=== PATIENT | male | born 1950 | race Caucasian/White ===

== ENCOUNTER 2017-09-03 07:19 | Emergency (ER) | payer MEDICARE, OTHER ==
--- NOTE | 2017-09-03 07:39 | UC ---
Shortness of Breath HPI - HPI Summary HPI Summary: SEVERAL DAYS OF SHORTNESS OF BREATH AND COUGH. HAS MILD RUNNY NOSE. DENIES FEVER , ST, EAR PAIN. SMOKES 1PPD SINCE AGE 15 (52 YEARS). HAS NO PCP OR REGULAR MEDICAL CARE. ARRIVES TO HYPOXIC WITH 84%O2SAT AND TACHYCARDIC. - History of Current Complaint Chief Complaint: UCRespiratory Stated Complaint: SOB COUGH Time Seen by Provider: 09/03/17 07:23 Hx Obtained From: Patient, Family/Head Of Science - Onset/Duration: Gradual Onset, Lasting Days, Still Present Timing: Constant Current Severity: Moderate Aggrevating Factors: Movement Alleviating Factors: Nothing Associated Signs & Symptoms: Positive: Cough (Nonproductive), Wheezing, Nasal Congestion. Negative: Chest Pain w/Cough, Chest Pain Unrelated to Cough, Fever , Dizzy - Allergy/Home Medications Allergies/Adverse Reactions: Allergies Allergy/AdvReac Type Severity Reaction Status Date / Time Penicillins Allergy Rash Verified 06/14/15 19:26 PMH/Surg Hx/FS Hx/Imm Hx Previously Healthy: Yes - Surgical History Surgical History: None - Family History Known Family History: Positive: Cardiac Disease - Social History Alcohol Use: Rare Substance Use Type: None Smoking Status (MU): Heavy Every Day Tobacco Smoker Type: Cigarettes Amount Used/How Often: 1 ppd Review of Systems Constitutional: Negative ENT: Nasal Discharge Respiratory: Shortness Of Breath, Cough Cardiovascular: Negative Gastrointestinal: Negative All Other Systems Reviewed And Are Negative: Yes Physical Exam Triage Information Reviewed: Yes Appearance: No Pain Distress, Well-Nourished, Ill-Appearing - MOD Vital Signs: Initial Vital Signs Temp 98.7 F 09/03/17 07:20 Pulse 126 09/03/17 07:20 Resp 24 09/03/17 07:20 Pulse Ox 84 09/03/17 07:20 Vital Signs Reviewed: Yes Eyes: Positive: Conjunctiva Clear ENT: Positive: Hearing grossly normal Neck: Positive: Supple Respiratory: Positive: Decreased breath sounds, Accessory muscle use, Wheezing - MILD DIFFUSE Cardiovascular: Positive: Tachycardia - IRREGULAR Abdomen Description: Positive: Soft Musculoskeletal: Positive: No Edema Neurological: Positive: Alert Psychological: Positive: Normal Response To Family, Age Appropriate Behavior Skin: Negative: rashes Diagnostics - EKG Cardiac Rate: Tachycardia - 120BPM Cardiac Rhythm: Sinus: Normal, AFib: Normal, Junctional: Normal, LBBB: Normal, Other Rhythm: Normal Ectopy: None ST Segment: Normal Shortness of Breath Dx - Differential Dx/Diagnosis Provider Diagnoses: HYPOXIA/TACHYCARDIA - Physician Notification/Consults Discussed Patient Care With: Khai Hancock - [place] [facility] Instructed by Provider To: MD Will See In ED Discharge - Discharge Plan Condition: Stable Disposition: TRANS HIGHER LVL OF CARE FAC Referrals: Non Staff,Doctor [Medical Doctor] -
[2017-09-03] MEDS ORDERED: Albuterol HFA INHALER* 8 gm MDI INH ONE (07:43)
[2017-09-03] MEDS ORDERED: Ipratropium 0.5MG/2.5ML NEB* 0.5 MG/2.5 ML NEB.SOLN INH ONE (07:43)
[2017-09-03] MEDS ORDERED: Albuterol/Ipratropium NEB.SOL* Albuterol 2.5 MG/Ipratropium 0.5 MG 3 ML ONE (07:44)
[2017-09-03] MEDS ORDERED: Albuterol 2.5 MG/3 ML NEB.SOL* (0.083%) INH ONE (07:51)
== END 2017-09-03 08:01 | disposition short-term general hospital (02) ==
LOC: UCEAST 07:19
DX: R09.02 Hypoxemia (principal); F17.210 Nicotine dependence, cigarettes, uncomplicated; R00.0 Tachycardia, unspecified
CPT/HCPCS: 93005; 99213; A9270-GY; G0463

== ENCOUNTER 2017-09-03 08:20 | Inpatient (IN) | payer MEDICARE, OTHER ==
[2017-09-03] MEDS ORDERED: methylPREDNISolone 125 MG* 2 ML VIAL IV ONE (08:22)
[2017-09-03] MEDS ORDERED: NS 0.9% 1000 ML* 1,000 ML IV ONE (08:22)
[2017-09-03] MEDS ORDERED: Albuterol/Ipratropium NEB.SOL* Albuterol 2.5 MG/Ipratropium 0.5 MG 3 ML INH ONE (08:22)
[2017-09-03 08:39] LABS: Hematocrit 46 % (42-52); Hemoglobin 15.1 g/dl (14.0-18.0); Mean Corpuscular HGB Conc 33 g/dl (31-36); Mean Corpuscular Hemoglobin 30 pg (27-31); Mean Corpuscular Volume 91 fL (80-94); Mean Platelet Volume 9 um3 (7.4-10.4); Red Blood Count 5.07 10^6/ul (4.0-5.4); Red Cell Distribution Width 14 % (10.5-15)
[2017-09-03] MEDS ORDERED: Levofloxacin 750 MG IVPREMIX(* 750 MG/150 ML BAG IVPB ONE (08:39)
[2017-09-03 09:05] LABS: C Reactive Protein 80.9 mg/L (< 5.00)
[2017-09-03 09:12] LABS: Troponin I 0.05 ng/mL (<0.04)
--- NOTE | 2017-09-03 09:30 | RAD ---
INDICATION: Short of breath COMPARISON: None TECHNIQUE: PA and lateral dual-energy views were obtained. FINDINGS: Bones/Soft Tissues: There are no acute bony findings. Cardiomediastinal: The heart is normal in size. The central pulmonary vessels are prominent perhaps related to pulmonary arterial hypertension. Lungs: There is hyperinflation. There is diffuse interstitial change which is likely chronic. Since there are no prior examinations for comparison, suggest follow-up imaging as indicated. Pleura: There are no pleural effusions. Other: None IMPRESSION: HYPERINFLATION WITH PRESUMED CHRONIC INTERSTITIAL CHANGE.
[2017-09-03 09:36] LABS: BUN/Creatinine Ratio 10.8 (8-20); EGFR African American 93.7 (>60); EGFR Non-African American 72.8 (>60); Globulin 4.1 g/dL (2-4); Total Bilirubin 0.6 mg/dL (0.2-1.0); Total Protein 8.1 g/dL (6.4-8.9)
[2017-09-03 10:01] LABS: Potassium 4.1 mmol/L (3.5-5.0)
[2017-09-03] MEDS ORDERED: Levalbuterol 1.25MG/0.5ML NEB INH PRN (11:32)
[2017-09-03] MEDS: Albuterol/Ipratropium NEB.SOL* Albuterol 2.5 MG/Ipratropium 0.5 MG 3 ML INH SCH ×2 (12:45→19:33)
[2017-09-03] MEDS: Enoxaparin(*) 40 MG/0.4 ML SYR SUBCUT SCH (12:45)
[2017-09-03] MEDS: Nicotine PATCH 21 MG/24 HR* PATCH TRANSDERM SCH (13:50)
--- NOTE | 2017-09-03 16:28 | HP ---
HISTORY AND PHYSICAL: DATE OF ADMISSION: 09/03/17 PRIMARY CARE PHYSICIAN: The patient does not have PCP. CHIEF COMPLAINT: Shortness of breath and cough. HISTORY OF PRESENT ILLNESS: Mr. Osborn is a 67-year-old man with a past medical history of tobacco abuse, heart murmur and little medical followup, presents to the hospital with shortness of breath and cough. The patient states his symptoms began 3 days ago initially just with a cough. He states that by the following morning he also developed a sore throat. 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 He said he felt well throughout the day; however, Friday night symptoms seemed to return. Over the following days, he also developed some shortness of breath that seemed to be only significant when he was coughing. He did not feel like he had any exertional dyspnea, although he did report the cough was worse when he was lying down. Cough is productive of initially clear sputum, but then turned yellow. His states that there may have been a slight pink tinge this morning. Overnight last night, his noticed he was having significantly difficulty breathing when she got home from work. He was sitting up in his chair and had difficulty lying down flat, also did not have much to eat yesterday. Patient denies any subjective fever, chills , chest pain, nausea, vomiting, diarrhea or constipation. Denies any myalgias. He does not think he was exposed to any sick contacts. 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 His works in the school system, so she is exposed to a lot of viral infections. She herself has not been sick. Patient has not had a flu shot this year and states that he has not seen a doctor for probably 40 years. PAST MEDICAL HISTORY: Heart murmur, tobacco abuse. PAST SURGICAL HISTORY: None. HOME MEDICATIONS: Occasionally use Advil. FAMILY HISTORY: Significant for his sister with COPD, maternal grandmother with CHF. SOCIAL HISTORY: Patient is a pack per day smoker x50 years, rarely drinks alcohol. Denies any illicit drug use. Patient reports allergy to penicillin, which causes hives. PHYSICAL EXAMINATION GENERAL: The patient is a middle-aged, male, lying in bed, in no apparent distress. VITAL SIGNS: On admission, temperature 100.1, heart rate of 108, respiratory rate of 26, O2 saturation 93% on 2 L, blood pressure 180/93. HEENT: Head normocephalic, atraumatic. Eyes: Pupils equal, round, and reactive to light and accommodation. Anicteric sclerae. ENT: Dry mucous membranes. No cervical lymphadenopathy. LUNGS: Patient with diffuse inspiratory and expiratory wheezing. Fair air movement. May be some slight rales in the right base CARDIOVASCULAR: Tachycardic, could not appreciate murmur. No gallops or rubs. ABDOMEN: Soft, nontender, nondistended. Bowel sounds positives. EXTREMITIES: No cyanosis, clubbing or edema. NEUROLOGIC: The patient is alert and oriented x3. No focal neurological deficits. DIAGNOSTIC STUDIES/LAB DATA: White blood cell count of 17, hematocrit of 46, platelets of 309, lactic acid 1.3. Sodium 131, potassium 4.1, chloride of 97, carbon dioxide of 25, BUN of 11, creatinine 1.02, glucose of 136. LFTs are within normal limits. CK of 109, CK-MB of 6, troponin 0.05, CRP of 80. B- natriuretic peptide of 627. Flu, negative. Chest x-ray personally reviewed shows hyper-expanded lungs. No focal consolidations. EKG personally reviewed shows sinus tachycardia with PVC and left ventricular hypertrophy. ASSESSMENT AND PLAN: Shortness of breath, hypoxia, low-grade fever, likely due to chronic obstructive pulmonary disease exacerbation in a 67-year-old man with little medical followup but significant tobacco abuse history. 1. Shortness of breath, cough, low-grade fever, likely secondary to chronic obstructive pulmonary disease exacerbation that is undiagnosed as the patient has little medical followup. No clear evidence of pneumonia on chest x-ray, but he does have a significant white blood cell count. He received levofloxacin in the emergency department. For now I am just going to continue the patient on azithromycin 500 mg daily x3 days. Check a procalcitonin and if this is elevated, we will consider adding on ceftriaxone as well. The patient received 125 mg of methylprednisolone in the emergency department. We will continue him on 40 q. 12 for now, may be able to transition oral prednisone tomorrow morning. We will place the patient on around the clock Mady with p.r.n. Xopenex. He was counseled on tobacco cessation. We will try to wean his oxygen as tolerated. Flu swab is negative. His sputum Gram stain was polymicrobial with some epithelial cells. 2. Troponin elevation. The patient does have a mild troponin elevation of 0.05. We will continue to trend this for now, monitor patient on telemetry. I suspect this is likely demand mediated from his hypoxia. However, he does have an elevated B-natriuretic peptide and does state some of his symptoms are worse when lying flat. With these findings as well as his EKG, I am going to get an echocardiogram to evaluate his cardiac function. 3. DVT prophylaxis. Lovenox subcu. 4. Code status. Patient is a full code. TIME SPENT: Total time spent on this admission 50 minutes with over half the time spent [id number] with the patient in counseling and coordinating care. [id number]/CPS #: [id number] MTDD
--- NOTE | 2017-09-03 16:42 | ECHO ---
Patient: RAFAEL LUO [facility] Rec#: [id number] : 1950 Date: 09/03/2017 Age: 67y Height: 170.2 cm / 67.0 in Weight: 81.7 kg / 180.1 lbs Sex: M BSA: 1.9 Room#: [facility] Admit Date#: 09/03/2017 Type: Inpatient Referring: RADHA GRANADOS MD Reading: Dennise Oglesby MD [employer] Operator: Leila Jansen RN RDCS Transthoracic Echocardiogram Indication: SOB, elevated BNP BP: 128/61 HR: 98 Rhythm: NSR with PVCs Findings History: Smoker Technical Comments: The study quality is fair. The study is technically limited due to the patient's smoking history. Completed at 1622. Left Ventricle: The left ventricular chamber size is normal. Septal wall hypertrophy is observed. There is global hypokinesis of the left ventricle with minor regional variation.Relative hypokinesis of the inferior wall and mild global hypokinesis relative to RV systolic function. There is mild to moderately decreased left ventricular systolic function. The estimated ejection fraction is 45-50%. There is no consistent Doppler evidence of clinically significant diastolic dysfunction. Left Atrium: The left atrial chamber size is normal. Right Ventricle: The right ventricle wall thickness is mildly increased. The right ventricular cavity size is normal. The right ventricular global systolic function is normal. Right Atrium: The right atrium is slightly dilated. Aortic Valve: The aortic valve structure is not well visualized. The aortic valve leaflets are mildly thickened. There is no evidence of aortic regurgitation. There is no evidence of aortic stenosis. Mitral Valve: The mitral valve leaflets are mildly thickened. There is trace to mild mitral regurgitation. There is no evidence of mitral stenosis. Tricuspid Valve: The tricuspid valve leaflets are normal. There is trace tricuspid regurgitation. Unable to estimate the right ventricular systolic pressure. There is no tricuspid stenosis. Pulmonic Valve: The pulmonic valve structure is not well visualized. Pericardium: There is no significant pericardial effusion. A pericardial fat pad is visualized. Aorta: There is no dilatation of the ascending aorta. The aortic arch is not well visualized. There is no dilation of the aortic root. Pulmonary Artery: The main pulmonary artery is not well visualized. Venous: The inferior vena cava appears normal in size. There is a greater than 50% respiratory change in the inferior vena cava dimension. Conclusions Technically limited study due to smoking history. Septal wall hypertrophy is observed. There is mild global hypokinesis of the left ventricle with minor regional variation, relative hypokinesis of the inferior wall. The estimated ejection fraction is 45%. The right ventricle wall thickness is mildly increased with normal RV systolic function. There is trace to mild mitral regurgitation. There is trace tricuspid regurgitation. No prior study to compare. Measurements Name Value Normal Range RVIDd (AP) 2D 3.5 cm (0.9 - 2.6) RVDdMajor (2D) 3.3 cm (2.2 - 4.4) RVAW (2D) 0.8 cm (0.2 - 0.5) RAd ISD 4CH 5.3 cm (3.4 - 4.9) RA (A4C)W 4.1 cm (2.9 - 4.6) IVSd (2D) 1.1 cm (0.6 - 1) LVPWd (2D) 1 cm (0.6 - 1) LVIDd (2D) 5.2 cm (3.6 - 5.4) LVIDs (2D) 4.4 cm - LV FS (2D) 14 % (25 - 45) Aortic Annulus 2.2 cm (1.4 - 2.6) Ao root diameter (2D) 3 cm (2.1 - 3.5) Ascending Ao 3.1 cm (2.1 - 3.4) LA dimension (AP) 2D 3.4 cm (2.3 - 3.8) LAd ISD 4CH 5.4 cm (2.9 - 5.3) LA ISD 4CH W 4.1 cm (2.5 - 4.5) Name Value Normal Range LA ESV SP 4CH (A/L) 41 ml - LA ESV SP 2CH (A/L) 32 ml - LA ESV BP (A/L) 39 ml - LA ESV BP (A/L) index 20.3 ml/m2 - LA ESV SP 4CH (MOD) 38 ml - LA ESV SP 2CH (MOD) 31 ml - Name Value Normal Range MV E-wave Vmax 0.88 m/sec - MV deceleration time 183 msec - MV A-wave Vmax 0.73 m/sec - MV E:A ratio 1.2 ratio - LV septal e' Vmax 0.08 m/sec - LV lateral e' Vmax 0.1 m/sec - LV E:e' septal ratio 11 ratio - LV E:e' lateral ratio 8.8 ratio - Name Value Normal Range AV Vmax 1.7 m/sec - AV VTI 31.6 cm - AV peak gradient 10.5 mmHg - AV mean gradient 5.8 mmHg - LVOT Vmax 1.3 m/sec - LVOT VTI 22.1 cm - LVOT peak gradient 6.8 mmHg - LVOT mean gradient 4.1 mmHg - Name Value Normal Range IVC diameter 1.5 cm - Name Value Normal Range PV Vmax 0.78 m/sec -
[2017-09-03 17:53] LABS: Urine Bacteria 1+ (Absent); Urine Bilirubin Negative (Negative); Urine Glucose Negative (Negative); Urine Nitrite Negative (Negative)
[2017-09-03] MEDS ORDERED: Nicotine Patch Removal NOTE PATCH OFF SCH (21:00)
[2017-09-03] MEDS: methylPREDNISolone SOD 40 MG* 1 ML VIAL IV SCH (21:21)
[2017-09-04] MEDS: Albuterol/Ipratropium NEB.SOL* Albuterol 2.5 MG/Ipratropium 0.5 MG 3 ML INH SCH ×3 (01:30→12:39)
[2017-09-04 07:05] LABS: Hematocrit 39 % (42-52); Mean Corpuscular HGB Conc 33 g/dl (31-36); Mean Corpuscular Hemoglobin 30 pg (27-31); Mean Corpuscular Volume 90 fL (80-94); Mean Platelet Volume 9 um3 (7.4-10.4); Red Blood Count 4.34 10^6/ul (4.0-5.4); Red Cell Distribution Width 14 % (10.5-15); White Blood Count 17.6 10^3/ul (3.5-10.8)
--- NOTE | 2017-09-04 08:26 | ED ---
Bruce Thornton Angela, scribed for Khai Hancock MD on 09/03/17 at 0826 . Shortness of Breath - HPI Summary HPI Summary: This pt is a 67 y/o male BIBA from [facility] presenting to [facility] c/o SOB and cough that began 3 days ago. He states that his cough is productive with white sputum. Pt reports that he has only been taking Nyquil for his cough but denies taking any other medications. Pt denies fever. Per EMS, pt was found hypertensive 174/104 at Urgent Care. Pt is a current smoker, smokes about 1 ppd (since the age of 15). He drinks alcohol socially. Pt notes he has not seen a doctor in over 40 years. He denies any PMHx of COPD. Allergies: penicillin. - History of Current Complaint Hx Obtained From: Patient, Family/Floor Polisher - Onset/Duration: Lasting Days, Still Present Timing: Constant Dyspnea At: Rest Associated Signs & Symptoms: Cough (Productive) - Risk Factors Cardiac: Smoking - Allergy/Home Medications Allergies/Adverse Reactions: Allergies Allergy/AdvReac Type Severity Reaction Status Date / Time Penicillins Allergy Rash Verified 06/14/15 19:26 PMH/Surg Hx/FS Hx/Imm Hx Endocrine/Hematology History: Denies: Hx Diabetes Cardiovascular History: Denies: Hx Hypertension Respiratory History: Denies: Hx Chronic Obstructive Pulmonary Disease (COPD) - Family History Known Family History: Positive: Cardiac Disease - Social History Alcohol Use: Rare Substance Use Type: Reports: None Smoking Status (MU): Heavy Every Day Tobacco Smoker Type: Cigarettes Amount Used/How Often: 1 ppd Review of Systems Negative: Fever, Chills Eyes: Negative ENT: Negative Cardiovascular: Negative Positive: Shortness Of Breath, Cough - productive with white sputum Gastrointestinal: Negative Genitourinary: Negative Musculoskeletal: Negative Skin: Negative All Other Systems Reviewed And Are Negative: Yes Physical Exam - Summary Physical Exam Summary: VITAL SIGNS: Reviewed. GENERAL: Patient is a well-developed and nourished male who is lying comfortable in the stretcher. HEAD AND FACE: No signs of trauma. No ecchymosis, hematomas or skull depressions. No sinus tenderness. EYES: PERRLA, EOMI x 2, No injected conjunctiva, no nystagmus. EARS: Hearing grossly intact. Ear canals and tympanic membranes are within normal limits. MOUTH: Oropharynx within normal limits. NECK: Supple, trachea is midline, no adenopathy, no JVD, no carotid bruit, no c- spine tenderness, neck with full ROM. CHEST: Symmetric, no tenderness at palpation LUNGS: There are decreased breath sounds bilaterally with wheezes and crackles at bases of the lungs. CVS: Regular rate and rhythm, S1 and S2 present, no murmurs or gallops appreciated. ABDOMEN: Soft, non-tender. No signs of distention. No rebound no guarding, and no masses palpated. Bowel sounds are normal. EXTREMITIES: FROM in all major joints, no edema, no cyanosis or clubbing. NEURO: Alert and oriented x 3. No acute neurological deficits. Speech is normal and follows commands. SKIN: Dry and warm Triage Information Reviewed: Yes Vital Signs On Initial Exam: Initial Vitals Temp Pulse Resp BP Pulse Ox 100.1 F 108 26 180/93 93 09/03/17 08:27 09/03/17 08:27 09/03/17 08:27 09/03/17 08:27 09/03/17 08:27 Vital Signs Reviewed: Yes Diagnostics - Vital Signs Vital Signs Temp Pulse Resp BP Pulse Ox 09/03/17 10:30 104 27 110/79 94 09/03/17 10:00 104 35 95 09/03/17 09:14 109 22 99 09/03/17 09:00 109 34 93 09/03/17 08:37 36 09/03/17 08:32 108 35 180/93 94 09/03/17 08:27 100.1 F 108 26 180/93 93 - Laboratory Lab Results: Lab Results 09/03/17 09/03/17 09/03/17 Range/Units 07:54 07:54 07:54 WBC 17.0 H (3.5-10.8) 10^3/ul RBC 5.07 (4.0-5.4) 10^6/ul Hgb 15.1 (14.0-18.0) g/dl Hct 46 (42-52) % MCV 91 (80-94) fL MCH 30 (27-31) pg MCHC 33 (31-36) g/dl RDW 14 (10.5-15) % Plt Count 309 (150-450) 10^3/ul MPV 9 (7.4-10.4) um3 Neut % (Auto) 92.8 H (38-83) % Lymph % (Auto) 2.0 L (25-47) % Jennings % (Auto) 4.4 (1-9) % Eos % (Auto) 0.1 (0-6) % Baso % (Auto) 0.7 (0-2) % Absolute Neuts (auto) 15.7 H (1.5-7.7) 10^3/ul Absolute Lymphs (auto) 0.3 L (1.0-4.8) 10^3/ul Absolute Monos (auto) 0.7 (0-0.8) 10^3/ul Absolute Eos (auto) 0 (0-0.6) 10^3/ul Absolute Basos (auto) 0.1 (0-0.2) 10^3/ul Absolute Nucleated RBC 0.01 10^3/ul Nucleated RBC % 0.1 Sodium (133-145) mmol/L Potassium (3.5-5.0) mmol/L Chloride (101-111) mmol/L Carbon Dioxide (22-32) mmol/L Anion Gap (2-11) mmol/L BUN (6-24) mg/dL Creatinine (0.67-1.17) mg/dL Est GFR ( Amer) (>60) Est GFR (Non-Af Amer) (>60) BUN/Creatinine Ratio (8-20) Glucose (70-100) mg/dL Lactic Acid (0.5-2.0) mmol/L Calcium (8.6-10.3) mg/dL Total Bilirubin (0.2-1.0) mg/dL AST (13-39) U/L ALT (7-52) U/L Alkaline Phosphatase (34-104) U/L Total Creatine Kinase 109 (10-223) U/L CK-MB (CK-2) 6.0 (0.6-6.3) ng/mL Troponin I 0.05 H* (<0.04) ng/mL C-Reactive Protein 80.90 H (< 5.00) mg/L B-Natriuretic Peptide 627 H ( - 100) pg/mL Total Protein (6.4-8.9) g/dL Albumin (3.2-5.2) g/dL Globulin (2-4) g/dL Albumin/Globulin Ratio (1-3) Procalcitonin (<0.6) ng/mL Influenza A (Rapid) (Negative) Influenza B (Rapid) (Negative) 09/03/17 09/03/17 09/03/17 Range/Units 07:54 08:38 08:38 WBC (3.5-10.8) 10^3/ul RBC (4.0-5.4) 10^6/ul Hgb (14.0-18.0) g/dl Hct (42-52) % MCV (80-94) fL MCH (27-31) pg MCHC (31-36) g/dl RDW (10.5-15) % Plt Count (150-450) 10^3/ul MPV (7.4-10.4) um3 Neut % (Auto) (38-83) % Lymph % (Auto) (25-47) % Jennings % (Auto) (1-9) % Eos % (Auto) (0-6) % Baso % (Auto) (0-2) % Absolute Neuts (auto) (1.5-7.7) 10^3/ul Absolute Lymphs (auto) (1.0-4.8) 10^3/ul Absolute Monos (auto) (0-0.8) 10^3/ul Absolute Eos (auto) (0-0.6) 10^3/ul Absolute Basos (auto) (0-0.2) 10^3/ul Absolute Nucleated RBC 10^3/ul Nucleated RBC % Sodium 131 L (133-145) mmol/L Potassium 4.1 (3.5-5.0) mmol/L Chloride 97 L (101-111) mmol/L Carbon Dioxide 25 (22-32) mmol/L Anion Gap 9 (2-11) mmol/L BUN 11 (6-24) mg/dL Creatinine 1.02 (0.67-1.17) mg/dL Est GFR ( Amer) 93.7 (>60) Est GFR (Non-Af Amer) 72.8 (>60) BUN/Creatinine Ratio 10.8 (8-20) Glucose 136 H (70-100) mg/dL Lactic Acid 1.3 (0.5-2.0) mmol/L Calcium 9.0 (8.6-10.3) mg/dL Total Bilirubin 0.60 (0.2-1.0) mg/dL AST 14 (13-39) U/L ALT 13 (7-52) U/L Alkaline Phosphatase 89 (34-104) U/L Total Creatine Kinase (10-223) U/L CK-MB (CK-2) (0.6-6.3) ng/mL Troponin I (<0.04) ng/mL C-Reactive Protein (< 5.00) mg/L B-Natriuretic Peptide ( - 100) pg/mL Total Protein 8.1 (6.4-8.9) g/dL Albumin 4.0 (3.2-5.2) g/dL Globulin 4.1 H (2-4) g/dL Albumin/Globulin Ratio 1.0 (1-3) Procalcitonin 0.1 (<0.6) ng/mL Influenza A (Rapid) (Negative) Influenza B (Rapid) (Negative) 09/03/17 Range/Units 08:57 WBC (3.5-10.8) 10^3/ul RBC (4.0-5.4) 10^6/ul Hgb (14.0-18.0) g/dl Hct (42-52) % MCV (80-94) fL MCH (27-31) pg MCHC (31-36) g/dl RDW (10.5-15) % Plt Count (150-450) 10^3/ul MPV (7.4-10.4) um3 Neut % (Auto) (38-83) % Lymph % (Auto) (25-47) % Jennings % (Auto) (1-9) % Eos % (Auto) (0-6) % Baso % (Auto) (0-2) % Absolute Neuts (auto) (1.5-7.7) 10^3/ul Absolute Lymphs (auto) (1.0-4.8) 10^3/ul Absolute Monos (auto) (0-0.8) 10^3/ul Absolute Eos (auto) (0-0.6) 10^3/ul Absolute Basos (auto) (0-0.2) 10^3/ul Absolute Nucleated RBC 10^3/ul Nucleated RBC % Sodium (133-145) mmol/L Potassium (3.5-5.0) mmol/L Chloride (101-111) mmol/L Carbon Dioxide (22-32) mmol/L Anion Gap (2-11) mmol/L BUN (6-24) mg/dL Creatinine (0.67-1.17) mg/dL Est GFR ( Amer) (>60) Est GFR (Non-Af Amer) (>60) BUN/Creatinine Ratio (8-20) Glucose (70-100) mg/dL Lactic Acid (0.5-2.0) mmol/L Calcium (8.6-10.3) mg/dL Total Bilirubin (0.2-1.0) mg/dL AST (13-39) U/L ALT (7-52) U/L Alkaline Phosphatase (34-104) U/L Total Creatine Kinase (10-223) U/L CK-MB (CK-2) (0.6-6.3) ng/mL Troponin I (<0.04) ng/mL C-Reactive Protein (< 5.00) mg/L B-Natriuretic Peptide ( - 100) pg/mL Total Protein (6.4-8.9) g/dL Albumin (3.2-5.2) g/dL Globulin (2-4) g/dL Albumin/Globulin Ratio (1-3) Procalcitonin (<0.6) ng/mL Influenza A (Rapid) Negative (Negative) Influenza B (Rapid) Negative (Negative) Result Diagrams: 09/03/17 07:54 09/03/17 08:38 Lab Statement: Any lab studies that have been ordered have been reviewed, and results considered in the medical decision making process. - Radiology Chest XR Xray Interpretation: Positive (See Comments) - IMPRESSION: Hyperinflation with presumed chronic interstitial change. ED physician has reviewed this radiology report and agrees. Radiology Interpretation Completed By: Radiologist - EKG 0831 Cardiac Rate: Tachycardia - 108 bpm EKG Rhythm: Sinus Rhythm Ectopy: PVCs EKG Interpretation: No ST elevation Re-Evaluation - Re-Evaluation First Eval Re-Evaluation Time: 10:46 Comment: I discussed the admission plan with the pt and . Course/Dx - Course Assessment/Plan: This pt is a 67 y/o male BIBA from [facility] presenting to [facility] c /o SOB and cough that began 3 days ago. He states that his cough is productive with white sputum. Pt reports that he has only been taking Nyquil for his cough but denies taking any other medications. Pt denies fever. Per EMS, pt was found hypertensive 174/104 at Urgent Care. Pt is a current smoker, smokes about 1 ppd (since the age of 15). He drinks alcohol socially. Pt notes he has not seen a doctor in over 40 years. He denies any PMHx of COPD. Allergies: penicillin. Labs without any significant abnormalities except for WBC of 17, sodium of 131, glucose of 136. Troponin #1: 0.05, Troponin #2: 0.07. CRP of 80, BNP of 627. Influenza A and B are negative. Chest XR shows hyperinflation with presumed chronic interstitial change. In the ED course an IV access was obtained , duoneb and solumedorl were given to the pt, for what I think his symptoms are consistent with COPD exacerbation. Pt was also given aspirin for increased troponin. After these medications, the pts symptoms improved and the pt is feeling better. At this time, I discussed the case with Dr. Parkinson (hospitalist ) who accepted the pt for admission to rule out acute coronary syndrome, COPD. Pt was also given Levaquin since she he had elevated WBC and pt is having a COPD exacerbation. Pt is hemodynamically stable, alert and oriented x3. - Diagnoses Differential Diagnosis/HQI/PQRI: Positive: CHF, Chest Wall Pain, COPD Exacerbation, Pneumonia Provider Diagnoses: COPD exacerbation, rule out acute coronary syndrome - Physician Notifications Discussed Care of Patient With: Chi Parkinson Time Discussed With Above Provider: 10:44 Instructed by Provider To: Other - I discussed the pt's case with Dr. Parkinson, who has accepted the pt for admision. Discharge - Discharge Plan Condition: Stable Disposition: ADMITTED TO [facility] The documentation as recorded by the Bruce arthur Angela accurately reflects the service I personally performed and the decisions made by me, Khai Hancock MD.
[2017-09-04] MEDS ORDERED: Azithromycin TAB* 250 MG PO SCH (09:00)
[2017-09-04] MEDS: methylPREDNISolone SOD 40 MG* 1 ML VIAL IV SCH (10:06)
[2017-09-04] MEDS: Nicotine PATCH 21 MG/24 HR* PATCH TRANSDERM SCH (10:07)
[2017-09-04] MEDS: Enoxaparin(*) 40 MG/0.4 ML SYR SUBCUT SCH (11:55)
[2017-09-04 14:31] VITALS: BP 144/77
--- NOTE | 2017-09-05 05:54 | DS ---
DISCHARGE SUMMARY: DATE OF ADMISSION: 09/03/17 DATE OF DISCHARGE: 09/04/17 Of note was seen again in ED: 09/05/17 ADMITTING PROVIDER: Chi Parkinson MD ATTENDING PHYSICIAN: Israel Ribera MD PRIMARY CARE PHYSICIAN: Yet to be established, has not seen doctor in 40 years. CHIEF COMPLAINT: Shortness of breath and productive cough. PRINCIPAL DIAGNOSES: Pneumonia versus chronic obstructive pulmonary disease exacerbation versus interstitial lung disease. HISTORY OF PRESENT ILLNESS AND HOSPITAL COURSE: Mr. 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 He said he felt better, but then developed progressive shortness of breath, worse with coughing, which is productive of clear and then yellow sputum. His noticed that he was having difficulty lying down flat. No specific sick contacts, although a friend who poorly had pneumonia that his works in the school system. She herself has not been sick and a friend who is symptomatic at the time did not get a flu shot this year. He says he stopped smoking 3 days prior to admission with initiation of these symptoms. The patient was admitted to the hospital for pneumonia versus undiagnosed COPD exacerbation. He got a chest x-ray, which showed some chronic interstitial changes and hyperinflation. So, initial vital signs were significant for fever of 100.1, tachycardia of 108, initial tachypnea with respiratory rates up into the mid 30s to 39, satting low 90s. He was started on steroids 125 of Solu-Medrol and got one dose of Levaquin in the emergency room before transition to azithromycin 500 mg daily. The patient was noted to have a 5-beat run of NSVT overnight with some PVCs. He had an echocardiogram, which showed ejection fraction of 45% to 50%, some septal wall hypertrophy, some mild global hypokinesis of the left ventricle with minor regional variations with hypokinesis of the inferior wall, trace tricuspid regurgitation, trace to mild mitral regurgitation. The patient rapidly improved by hospital day #2, was satting mid 90s on room air, resolved tachypnea , afebrile, improved heart rate into the high 90s, able to ambulate without desaturation. The patient will be discharged and need to follow up with a new PCP to be established. Also recommendation to follow up with new procurement intern and supervisor bonding, Dr. Stephen. An order has been placed for CT chest to occur within approximately 2 weeks to monitor for evaluation of potential COPD and also this interstitial process. I will continue course of azithromycin and prednisone taper 60 mg for 4 days, 40 mg for 4 days, and 20 mg for 4 days until stop. Of note, his troponins were 0.05, 0.07, and 0.06. Denied any chest pain. His EKG was significant for LVH and sinus tachycardia. DISCHARGE MEDICATIONS: Include: 1. Prednisone 20 mg tabs to be taken 60 mg for 4 days, 40 mg for 4 days, and 20 mg for 4 days. 2. Azithromycin 500 mg for 2 more days. 3. Nicotine patch 21 mg every 24 hours. ADDENDUM: Pt was doing well at home but had a coughing fit the next morning. [facility] had not filled the azithromycin for him for unclear reason and he had misread the instructions on the prednisone, taking only 20mg. He re-presented to the emergency room 09/05 and felt improved after IV solumedrol. He was again Sat'ing 93-96% on room air, was moving air well w/ wheezing or rhonchi on my re- evaluation and again discharged home with additional medications: 4. levaquin 750mg x 7 days 5. spiriva 1 inhalation daily 6. albuterol nebs w/ nebulizor machine 7. symbicort 2 puffs BID Of note later found out they did not fill the spiriva or symbicort saying it was too expensive for them. DISCHARGE DIET: Heart healthy. ACTIVITY LEVEL: Unrestricted. FOLLOWUP: As mentioned, needs to establish care with primary care provider, Dr. Stephen, Pulmonology and new procurement intern. He should get this CT chest within approximately 2 weeks along with pulmonary function tests as an outpatient to evaluate for COPD. f/u finalized sputum cultures x2. TIME SPENT ON DISCHARGE: 35 minutes. [id number]/[facility] #: [id number] [facility]
== END 2017-09-04 18:15 | disposition home or self-care (01) | DRG 190 ==
LOC: ED 08:20 → MED 10:54
PROVIDERS: ADMIT Hospitalist; ATTEND Internal Medicine
DX: J44.1 Chronic obstructive pulmonary disease with (acute) exacerbation (principal); J18.9 Pneumonia, unspecified organism; I47.2 Ventricular tachycardia; J84.9 Interstitial pulmonary disease, unspecified; I08.1 Rheumatic disorders of both mitral and tricuspid valves; F17.210 Nicotine dependence, cigarettes, uncomplicated; J44.0 Chronic obstructive pulmonary disease with (acute) lower respiratory infection; Z82.49 Family history of ischemic heart disease and other diseases of the circulatory system; Z88.0 Allergy status to penicillin; Z83.6 Family history of other diseases of the respiratory system
CPT/HCPCS: 36415; 71020; 80053; 81003; 81015; 82550; 82553; 83605; 83880; 84145; 84484; 85025; 86140; 87040; 87070; 87077; 87086; 87107; 87205; 87502; 93005; 93306; 94640; 94760; 99213; A9270-GY; G0463; J1650; J2920; J2930

== ENCOUNTER → 2017-09-05 08:11 | Emergency (ER) | payer MEDICARE ==
[~2017-09-05 08:11] MED LIST: methylPREDNISolone 125 MG* 2 ML VIAL IV ONE
[2017-09-05 09:00] LABS: FIO2 5
[2017-09-05 09:02] LABS: Hematocrit 44 % (42-52); Hemoglobin 14.5 g/dl (14.0-18.0); Mean Corpuscular HGB Conc 33 g/dl (31-36); Mean Corpuscular Hemoglobin 30 pg (27-31); Mean Corpuscular Volume 91 fL (80-94); Mean Platelet Volume 9 um3 (7.4-10.4); Red Blood Count 4.79 10^6/ul (4.0-5.4); Red Cell Distribution Width 14 % (10.5-15); White Blood Count 22.9 10^3/ul (3.5-10.8)
[2017-09-05 09:03] LABS: PCO2 Arterial 54 mmHg (35-45)
[2017-09-05 09:04] LABS: Comments Flag Yes
[2017-09-05 09:16] LABS: Albumin 3.6 g/dL (3.2-5.2); BUN/Creatinine Ratio 20.5 (8-20); C Reactive Protein 40.39 mg/L (< 5.00); Calcium 9.1 mg/dL (8.6-10.3); EGFR African American 69.6 (>60); EGFR Non-African American 54.1 (>60); Globulin 3.7 g/dL (2-4); Total Bilirubin 0.3 mg/dL (0.2-1.0); Total Protein 7.3 g/dL (6.4-8.9)
[2017-09-05 09:29] LABS: Troponin I 0.06 ng/mL (<0.04)
--- NOTE | 2017-09-05 09:48 | RAD ---
INDICATION: Shortness of breath. COMPARISON: Comparison is made with a prior study from September 03, 2017. TECHNIQUE: Dual-energy PA and lateral views of the chest were obtained. FINDINGS: The heart is within normal limits in size. Mediastinal and hilar contours appear within normal limits. There is mild diffuse prominence of the interstitial markings which appear unchanged. No pleural effusion is seen. There is flattening of the diaphragms most consistent with chronic obstructive pulmonary disease. IMPRESSION: 1. DIFFUSE PROMINENCE OF INTERSTITIAL MARKINGS, UNCHANGED MOST CONSISTENT WITH EITHER CONGESTIVE HEART FAILURE OR CHRONIC INTERSTITIAL LUNG DISEASE. 2. FINDINGS CONSISTENT WITH COPD.
[2017-09-05 12:08] LABS: Urine Bacteria Absent (Absent); Urine Bilirubin Negative (Negative); Urine Glucose Negative (Negative); Urine Nitrite Negative (Negative)
[2017-09-05 12:19] VITALS: BP 156/91
--- NOTE | 2017-09-07 08:05 | ED ---
Bruce Thornton Angela, scribed for Khai Hancock MD on 09/05/17 at 0831 . Respiratory - HPI Summary HPI Summary: This pt is a 67 y/o male presenting to [facility] c/o SOB and cough since this morning. Pt reports he went to bed feeling well yesterday with no SOB. He states his cough is productive with phlegm. Pt denies any pain, fever, chills, chest pain. He took 20 mg of prednisone at home today. Per EMS, pt has 2 duonebs en route. Pt has stopped smoking. He was seen in the ED 2 days ago for SOB and was admitted to the hospital. - History of Current Complaint Stated Complaint: SHORT OF BREATH Time Seen by Provider: 09/05/17 08:19 Hx Obtained From: Patient Onset/Duration: Lasting Hours, Still Present Timing: Constant Pain Intensity: 0 Character: Wheezing, Cough (Productive) Sputum Amount: Swallowed by Patient Aggravating Factor(s): Nothing Alleviating Factor(s): Nothing Associated Signs and Symptoms: SOB - Allergy/Home Medications Allergies/Adverse Reactions: Allergies Allergy/AdvReac Type Severity Reaction Status Date / Time Penicillins Allergy Rash Verified 06/14/15 19:26 Home Medications: Home Medications predniSONE TAB* [Deltasone TAB*] 20 mg PO DAILY 09/05/17 [History Confirmed ] PMH/Surg Hx/FS Hx/Imm Hx Endocrine/Hematology History: Denies: Hx Diabetes Cardiovascular History: Denies: Hx Hypertension Respiratory History: Denies: Hx Asthma, Hx Chronic Obstructive Pulmonary Disease (COPD) Sensory History: Denies: Hx Contacts or Glasses, Hx Hearing Aid Opthamlomology History: Denies: Hx Contacts or Glasses Infectious Disease History: No Infectious Disease History: Denies: Traveled Outside the [place] in Last 30 Days - Family History Known Family History: Positive: Cardiac Disease - Social History Alcohol Use: Rare Substance Use Type: Reports: None Smoking Status (MU): Heavy Every Day Tobacco Smoker Type: Cigarettes Amount Used/How Often: 1 ppd Review of Systems Negative: Fever, Chills Eyes: Negative ENT: Negative Negative: Chest Pain Positive: Shortness Of Breath, Cough Gastrointestinal: Negative Genitourinary: Negative Musculoskeletal: Negative Skin: Negative All Other Systems Reviewed And Are Negative: Yes Physical Exam - Summary Physical Exam Summary: VITAL SIGNS: Reviewed. GENERAL: Patient is a well-developed and nourished male who is lying comfortable in the stretcher. HEAD AND FACE: No signs of trauma. No ecchymosis, hematomas or skull depressions. No sinus tenderness. EYES: PERRLA, EOMI x 2, No injected conjunctiva, no nystagmus. EARS: Hearing grossly intact. Ear canals and tympanic membranes are within normal limits. MOUTH: Oropharynx within normal limits. NECK: Supple, trachea is midline, no adenopathy, no JVD, no carotid bruit, no c- spine tenderness, neck with full ROM. CHEST: Symmetric, no tenderness at palpation LUNGS: There is diffuse wheezing. There are decreased breath sounds. CVS: Regular rate and rhythm, S1 and S2 present, no murmurs or gallops appreciated. ABDOMEN: Soft, non-tender. No signs of distention. No rebound no guarding, and no masses palpated. Bowel sounds are normal. EXTREMITIES: FROM in all major joints, no edema, no cyanosis or clubbing. NEURO: Alert and oriented x 3. No acute neurological deficits. Speech is normal and follows commands. SKIN: Dry and warm Triage Information Reviewed: Yes Vital Signs On Initial Exam: Initial Vitals Temp Pulse Resp BP Pulse Ox 98.7 F 119 34 188/114 98 09/05/17 08:22 09/05/17 08:22 09/05/17 08:22 09/05/17 08:22 09/05/17 08:22 Vital Signs Reviewed: Yes Diagnostics - Vital Signs Vital Signs Temp Pulse Resp BP Pulse Ox 09/05/17 08:22 98.7 F 119 34 188/114 98 - Laboratory Lab Results: Lab Results 09/05/17 09/05/17 09/05/17 Range/Units 08:47 08:47 08:47 WBC 22.9 H (3.5-10.8) 10^3/ul RBC 4.79 (4.0-5.4) 10^6/ul Hgb 14.5 (14.0-18.0) g/dl Hct 44 (42-52) % MCV 91 (80-94) fL MCH 30 (27-31) pg MCHC 33 (31-36) g/dl RDW 14 (10.5-15) % Plt Count 358 (150-450) 10^3/ul MPV 9 (7.4-10.4) um3 Neut % (Auto) 90.2 H (38-83) % Lymph % (Auto) 4.0 L (25-47) % Creek % (Auto) 5.7 (1-9) % Eos % (Auto) 0 (0-6) % Baso % (Auto) 0.1 (0-2) % Absolute Neuts (auto) 20.7 H (1.5-7.7) 10^3/ul Absolute Lymphs (auto) 0.9 L (1.0-4.8) 10^3/ul Absolute Monos (auto) 1.3 H (0-0.8) 10^3/ul Absolute Eos (auto) 0 (0-0.6) 10^3/ul Absolute Basos (auto) 0 (0-0.2) 10^3/ul Absolute Nucleated RBC 0.01 10^3/ul Nucleated RBC % 0 Patient Temperature ABG pH (7.35-7.45) ABG pH (Temp Correct) ABG pCO2 (35-45) mmHg ABG pCO2 (Temp Corrct ABG pO2 (80-100) mmHg ABG pO2 (Temp Correct ABG HCO3 (19-31) mmol/L ABG O2 Saturation (95-98) % ABG Base Excess (-2.0-2.0) Respiration Rate Ventilator Type Vent Mode FiO2 Inspiratory Time PEEP Pressure Support Pressure Control EPAP IPAP BiPAP Sodium 134 (133-145) mmol/L Potassium 4.0 (3.5-5.0) mmol/L Chloride 100 L (101-111) mmol/L Carbon Dioxide 29 (22-32) mmol/L Anion Gap 5 (2-11) mmol/L BUN 27 H (6-24) mg/dL Creatinine 1.32 H (0.67-1.17) mg/dL Est GFR ( Amer) 69.6 (>60) Est GFR (Non-Af Amer) 54.1 (>60) BUN/Creatinine Ratio 20.5 H (8-20) Glucose 115 H (70-100) mg/dL Calcium 9.1 (8.6-10.3) mg/dL Total Bilirubin 0.30 (0.2-1.0) mg/dL AST 57 H (13-39) U/L ALT 49 (7-52) U/L Alkaline Phosphatase 79 (34-104) U/L Total Creatine Kinase 117 (10-223) U/L CK-MB (CK-2) 6.9 H (0.6-6.3) ng/mL Troponin I 0.06 H* (<0.04) ng/mL C-Reactive Protein 40.39 H (< 5.00) mg/L B-Natriuretic Peptide 375 H ( - 100) pg/mL Total Protein 7.3 (6.4-8.9) g/dL Albumin 3.6 (3.2-5.2) g/dL Globulin 3.7 (2-4) g/dL Albumin/Globulin Ratio 1.0 (1-3) Urine Color Urine Appearance Urine pH (5-9) Ur Specific [place] (1.010-1.030) Urine Protein (Negative) Urine Ketones (Negative) Urine Blood (Negative) Urine Nitrate (Negative) Urine Bilirubin (Negative) Urine Urobilinogen (Negative) Ur Leukocyte Esterase (Negative) Urine WBC (Auto) (Absent) Urine RBC (Auto) (Absent) Ur Squamous Epith Cells (Absent) Urine Bacteria (Absent) Hyaline Casts (Absent) Urine Glucose (Negative) 09/05/17 09/05/17 Range/Units 08:50 10:29 WBC (3.5-10.8) 10^3/ul RBC (4.0-5.4) 10^6/ul Hgb (14.0-18.0) g/dl Hct (42-52) % MCV (80-94) fL MCH (27-31) pg MCHC (31-36) g/dl RDW (10.5-15) % Plt Count (150-450) 10^3/ul MPV (7.4-10.4) um3 Neut % (Auto) (38-83) % Lymph % (Auto) (25-47) % Creek % (Auto) (1-9) % Eos % (Auto) (0-6) % Baso % (Auto) (0-2) % Absolute Neuts (auto) (1.5-7.7) 10^3/ul Absolute Lymphs (auto) (1.0-4.8) 10^3/ul Absolute Monos (auto) (0-0.8) 10^3/ul Absolute Eos (auto) (0-0.6) 10^3/ul Absolute Basos (auto) (0-0.2) 10^3/ul Absolute Nucleated RBC 10^3/ul Nucleated RBC % Patient Temperature Not Reportable ABG pH 7.34 L (7.35-7.45) ABG pH (Temp Correct) Not Reportable ABG pCO2 54 H (35-45) mmHg ABG pCO2 (Temp Corrct Not Reportable ABG pO2 129 H (80-100) mmHg ABG pO2 (Temp Correct Not Reportable ABG HCO3 26.5 (19-31) mmol/L ABG O2 Saturation 99.2 H (95-98) % ABG Base Excess 2.0 (-2.0-2.0) Respiration Rate Not Reportable Ventilator Type Not Reportable Vent Mode Not Reportable FiO2 5 Inspiratory Time Not Reportable PEEP Not Reportable Pressure Support Not Reportable Pressure Control Not Reportable EPAP Not Reportable IPAP Not Reportable BiPAP Not Reportable Sodium (133-145) mmol/L Potassium (3.5-5.0) mmol/L Chloride (101-111) mmol/L Carbon Dioxide (22-32) mmol/L Anion Gap (2-11) mmol/L BUN (6-24) mg/dL Creatinine (0.67-1.17) mg/dL Est GFR ( Amer) (>60) Est GFR (Non-Af Amer) (>60) BUN/Creatinine Ratio (8-20) Glucose (70-100) mg/dL Calcium (8.6-10.3) mg/dL Total Bilirubin (0.2-1.0) mg/dL AST (13-39) U/L ALT (7-52) U/L Alkaline Phosphatase (34-104) U/L Total Creatine Kinase (10-223) U/L CK-MB (CK-2) (0.6-6.3) ng/mL Troponin I (<0.04) ng/mL C-Reactive Protein (< 5.00) mg/L B-Natriuretic Peptide ( - 100) pg/mL Total Protein (6.4-8.9) g/dL Albumin (3.2-5.2) g/dL Globulin (2-4) g/dL Albumin/Globulin Ratio (1-3) Urine Color Yellow Urine Appearance Clear Urine pH 5.0 (5-9) Ur Specific [place] 1.010 (1.010-1.030) Urine Protein Negative (Negative) Urine Ketones Negative (Negative) Urine Blood 1+ H (Negative) Urine Nitrate Negative (Negative) Urine Bilirubin Negative (Negative) Urine Urobilinogen Negative (Negative) Ur Leukocyte Esterase Negative (Negative) Urine WBC (Auto) Trace(0-5/hpf) (Absent) Urine RBC (Auto) Trace(0-2/hpf) (Absent) Ur Squamous Epith Cells Present H (Absent) Urine Bacteria Absent (Absent) Hyaline Casts Present H (Absent) Urine Glucose Negative (Negative) Result Diagrams: 09/05/17 08:47 09/05/17 08:47 Lab Statement: Any lab studies that have been ordered have been reviewed, and results considered in the medical decision making process. - Radiology Chest XR Xray Interpretation: Positive (See Comments) - IMPRESSION: 1. Diffuse prominence of interstitial markings, unchanged most consistent with either congestive heart failure or chronic interstitial lung disease. 2. Findings consistent with COPD. ED physician has reviewed this radiology report and agrees. Radiology Interpretation Completed By: Radiologist - EKG 0856 Cardiac Rate: Tachycardia - 100 bpm EKG Rhythm: Sinus Rhythm EKG Interpretation: No ST elevation EKG Comparison: No Significant Change - from prior EKG on 09/03/17. Re-Evaluation - Re-Evaluation First Eval Re-Evaluation Time: 11:15 Comment: I discussed the XR results with the pt. Disposition - Course Assessment/Plan: This pt is a 67 y/o male presenting to [facility] c/o SOB and cough since this morning. Pt reports he went to bed feeling well yesterday with no SOB. He states his cough is productive with phlegm. Pt denies any pain, fever, chills, chest pain. He took 20 mg of prednisone at home today. Per EMS, pt has 2 duonebs en route. Pt has stopped smoking. He was seen in the ED 2 days ago for SOB and was admitted to the hospital. Test results show WBC of 22.9, ABG pH of 7.34, pCO2 of 54, pO2 of 129, O2 sat of 99.2 , creatinine of 1.32, glucose of 115, troponin of 0.06, CRP of 40.3, BNP pf 375. UA is negative for UTI. Chest XR shows diffuse prominence of interstitial markings, unchanged most consistent with either congestive heart failure or chronic interstitial lung disease. 2. Findings consistent with COPD. In the ED course, the pt was given duonebs and solu-medrol for COPD exacerbation, a lot of wheezing and decreased breath sounds. Since the pt has worsening leukocytosis, acute renal insufficiency, and still wheezing, I discussed the test results and findings with Dr. Kerr. She has accepted the pt for admission. Pt is hemodynamically stable, alert and oriented x3. Addendum: Lab called regarding the pt's positive sputum culture. It is positive for mold, rothia mucilaginosa. I called Dr. Ribera at 15:34 and he was informed. - Differential Dx - Cardiopulmonary Differential Diagnoses - Cardiopulmonary: Acute Dyspnea, CHF, Chest Wall Pain, Exacerbation Of COPD - Diagnoses Provider Diagnoses: COPD exacerbation, Renal insufficiency, increased troponin, rule out ACS - Physician Notifications Discussed Care Of Patient With: Berta Kerr Time Discussed With Above Provider: 11:13 Instructed by Provider To: Other - I discussed the pt's case with Dr. Kerr and she has agreed to admit the pt. Discharge - Discharge Plan Condition: Improved Disposition: ADMITTED TO [facility] Prescriptions: Albuterol/Ipratropium NEB.MATT* [Duoneb (Albuterol 2.5 MG/Ipratropium 0.5 MG)] 1 neb INH Q6H PRN #30 neb.matt PRN Reason: Sob/Wheezing Budesonide/Formote 160/4.5(NF) [Symbicort 160/4.5 (NF)] 2 puff INH BID #1 mdi Levofloxacin TAB* [Levaquin TAB*] 750 mg PO DAILY #7 tab Mometasone/Formoter 200/5 MDI* [Dulera 200/5 MDI*] 2 puff INH BID #1 mdi Nebulizers [Nebulizer] 1 mis XX DAILY #1 mis Nebulizers [Nebulizer] 1 mis XX DAILY #1 mis Spiriva Inhaler DEVICE* [Tiotropium Inhaler DEVICE*] 0 inh INH QAM #1 device Tiotropium CAP.INH* [Spiriva CAP.INH*] 1 cap.inh INH DAILY #30 cap.inh Patient Education Materials: Ipratropium/Albuterol (By breathing), Tiotropium ( By breathing), Mometasone/Formoterol (By breathing) Referrals: Tien Heck MD [Primary Care Provider] - Additional Instructions: Please f/u as arranged with new PCP, flexo press operator and Billing And Accounting Staff Assistant. The documentation as recorded by the Bruce arthur Angela accurately reflects the service I personally performed and the decisions made by , Khai Hancock MD.
--- NOTE | 2017-09-07 08:52 | PN ---
Progress Note - Progress Note Date of Service: 09/05/17 Note: mold +1 in sputum culture grown in preliminary results. patient was admitted to [facility].
== END | disposition short-term general hospital (02) ==
LOC: ED 08:11
DX: J44.1 Chronic obstructive pulmonary disease with (acute) exacerbation (principal); N28.9 Disorder of kidney and ureter, unspecified; R79.89 Other specified abnormal findings of blood chemistry; R06.02 Shortness of breath; R05 Cough; F17.210 Nicotine dependence, cigarettes, uncomplicated
CPT/HCPCS: 36415; 36600; 71020; 80053; 81003; 81015; 82550; 82553; 82803; 83880; 84484; 85025; 86140; 87070; 87205; 93005; 96365; 99284; J2930